=== PATIENT | male | born 1965 | race Two or more races ===

== ENCOUNTER 2023-02-01 17:21 | Emergency (ER) | payer MEDICAID, OTHER ==
[~2023-02-01] VITALS: Ht 182.9 cm; Wt 103.1 kg
[2023-02-01 19:07] VITALS: BP 148/79
[2023-02-01] MEDS ORDERED: ALBUTEROL SULF 2.5 MG/0.5ML(0.5%) NEB SOLN NEB ONE (19:15)
[2023-02-01] MEDS ORDERED: methylPREDNISolone SOD SUCC 125 MG/2 ML VL IM ONE (19:15)
[2023-02-01] MEDS ORDERED: IPRATROPIUM BROM 0.5 MG/2.5ML INH SOL NEB ONE (19:15)
[2023-02-01] MEDS ORDERED: ERY05OO OP (19:16)
[2023-02-01] MEDS ORDERED: FLUT1SPR9 (19:16)
[2023-02-01] MEDS ORDERED: ALBUAER3 IN (19:16)
[2023-02-01] MEDS ORDERED: AZIT250T9 PO (19:16)
[2023-02-01] MEDS ORDERED: PRED20TA2 PO (19:16)
== END 2023-02-01 20:01 | disposition home or self-care (01) ==
LOC: ER 17:21
DX: J45.998 Other asthma (principal); H10.89 Other conjunctivitis; B97.89 Other viral agents as the cause of diseases classified elsewhere
CPT/HCPCS: 71045; 94640; 96372; 99283; J2930; J7644